=== PATIENT | male | born 1960 | race Caucasian/White ===

== ENCOUNTER 2018-02-03 03:17 | Inpatient (IN) ==
[2018-02-03] MEDS ORDERED: *HR* OxyCODONE/APAP 10/325 TABLET PO PRN (06:56)
[2018-02-03] MEDS ORDERED: 0.9 % Sodium Chloride 1,000 ML IVC SCH ×2 (07:00→09:30)
[2018-02-03] MEDS: cefOXitin 2,000 MG in Water for inj. (sterile) 20 ML 20 ML IVP SCH ×3 (07:56→23:11)
[2018-02-03 08:18] LABS: Basophils # 0.1 K/mcL (0.0-0.2); Basophils % 0.5 %; Eosinophils # 0.4 K/mcL (0.0-0.6); Hematocrit 32.1 % (37.5-50.1); Hemoglobin 10.4 g/dL (12.9-16.9); Immature Granulocytes % 0.4 % (0-4); Immature Platelets 1.7 % (1.1-6.1); Lymphocytes # 2.3 K/mcL (0.6-4.6); Lymphocytes % 25.1 %; Mean Corpuscular HGB Conc 32.4 g/dL (31.6-35.5); Mean Corpuscular Hemoglobin 29.6 pg (28.0-33.3); Mean Corpuscular Volume 91.5 fL (83.0-100.0); Mean Platelet Volume 9.4 fL (9.4-12.4); Monocytes # 0.6 K/mcL (0.0-1.3); Monocytes % 6.5 %; Neutrophils # 5.8 K/mcL (1.6-8.9); Platelet Count 388 K/mcL (140-400); Red Blood Count 3.51 M/mcL (4.19-5.50); Red Cell Distribution Width 13.1 % (11.5-14.5); Segmented Neutrophils % 63.5 %
[2018-02-03 08:26] LABS: INR 1.4; Prothrombin Time 15.2 Seconds (9.4-12.1)
[2018-02-03 08:39] LABS: BUN/Creatinine Ratio 19 (6-26); Blood Urea Nitrogen 14 mg/dL (6-20); Calcium 9.1 mg/dL (8.6-10.3); Carbon Dioxide 25 mEq/L (23-29); Chloride 104 mEq/L (98-107); Glucose 120 mg/dL (70-105); Osmolality,Calculated 292 (280-300); Potassium 3.8 mEq/L (3.5-5.1); Sodium 140 mEq/L (136-145); eGFR For Non-African Americans > 60 (> 60)
[2018-02-03] MEDS ORDERED: Ondansetron 4 MG/2 ML VIAL IVP PRN ×2 (08:52→18:34)
[2018-02-03] MEDS ORDERED: *HR* Promethazine 25 MG/ML VIAL IVP PRN ×3 (09:20→18:34)
[2018-02-03] MEDS ORDERED: OXYCODONE Oral CONC 10 MG/0.5 ML ORAL.SYG SL PRN ×3 (09:20→18:34)
--- NOTE | 2018-02-03 10:28 | General Surg History&Physical ---
<Karishma Pryor Sawyer - Last Filed: 02/03/18 10:13> Date of Encounter: 02/03/18 Time of Encounter: 07:45 Assessment and Plan (1) Cholelithiasis and acute cholecystitis without obstruction Current Visit: Yes Status: Acute The assessment and plan as outlined above was discussed with the patient and/or family members who expressed understanding and agreement. All questions were answered. EKG from [facility] on 02/03/2018 at 0350 noted sinus rhythm with poor R wave progression. Other diagnostic studies at [facility] noted a WBC of 8.4, hemoglobin 10.6, elevated glucose at 134, alkaline phosphatase elevated at 125, CT of the abdomen and pelvis with IV contrast noted over distention of the gallbladder,. Per report review from [facility], Cholecystic inflammatory change consistent with acute cholecystitis, 2 centimeter calcified gallstone in the gallbladder neck, there is no evidence of abscess or perforation, no biliary ductal dilation. there is a 1.5 cm left adrenal nodules and a 4.5 cm right renal cyst. Moderate hiatal hernia. The disc has been sent to radiology to load into PACs for image review. The patient is recommended to undergo a laparoscopic cholecystectomy with possible intraoperative choliangiogram. The recommendations, risks, and benefits were reviewed by Dr. Peraza. The patient is agreeable to proceed. A signed consent is placed on the hard chart. He reports shortness of breath at baseline that has not worsened, stating, "I have emphysema." He denies chest pain. As noted above he did have an EKG K[place] which noted poor are wave progression. We will repeat this EKG for the preoperative setting. He has had limited activity recently due to his back surgery on 01/15/2018 but states that he is able to climb 2 flights of stairs and complete activities on a regular basis that are equal to 4 METs of activity. Plan: NPO IV antibiotics discomfort management and supportive care G.I. and DVT prophylaxis surgical intervention in the next 24 to 48 hours start scheduled duonebs now given his smoking, emphysema history, and current wheezing. Start aggressive pulmonary toileting now continued smoking cessation is strongly encouraged (2) COPD (chronic obstructive pulmonary disease) with emphysema Current Visit: Yes Status: Acute Will complete a CXR (PA and LAT) for baseline given his wheezing currently and fever to rule out CAP. start scheduled duonebs now given his smoking, emphysema history, and current wheezing. Otherwise see a/p above Qualifiers: Emphysema type: unspecified Qualified Code(s): J43.9 - Emphysema, unspecified (3) HTN, goal below 130/80 Current Visit: Yes Status: Acute IV prn hydralazine (4) Smoking history Current Visit: Yes Status: Acute See above (5) Chronic pain Current Visit: Yes Status: Acute PRN pain control at this time. Patient reports taking gabapentin at baseline but has not resumed his sentences previous back surgery. Qualifiers: Chronic pain type: other chronic pain Qualified Code(s): G89.29 - Other chronic pain History of Present Illness Chief complaint: RUQ pain and nausea HPI: Mr. Umaña is a 57 year old male who presented in transfer from [facility] on 02/03/2018 for complaints of a 2 week worsening history of right upper quadrant pain. He reports approximately 2 weeks ago he began having right upper quadrant pain that was colicky, 6 out of 10, associated with eating, but we typically go away. Last night he had a sudden onset of much worsening abdominal pain, a 10 out of 10, sharp, wrapping around to the back and right shoulder, no alleviating factors, associated with nausea, no vomiting, and associated with feelings of chills and sweats. He reports the same symptoms have continued until he was recently given some pain medication. He endorses a history of constipation since his back surgery on January 15 for which he was taking laxatives and this would relieve his symptoms. He reports his last bowel movement with yesterday. He denies fever, headache, dizziness, chest pain, shortness of breath (outside his norm) urinary signs or symptoms, or generalized weakness. He denies black, bloody, or tarry stool. He reports a 2 pack per day smoking history for at least 40 years. He reports he quit prior to having his recent back surgery. He states he has known emphysema and uses an inhaler. He reports a past medical history of hypo thyroid, hypertension, Gerd, hyperlipidemia, and back problems. He was recently started on gabapentin and aspirin after his back surgery but has not began taking those as yet. Past Med Surg Social Fam HX - Past Medical History Source: patient, old records reviewed Medical history: COPD (Emphysema), GERD, hyperlipidemia, hypertension, thyroid disease Psychiatric history: no psych history - Past Surgical History Additional surgical history: Spinal fusion March 04, 2017, recent quote rods, pins, and disc replacement in the low spine) 01/15/[address] Santacruz in [place] - Social History Smoking Status: Former smoker Smokeless Tobacco Status: No Alcohol use: none Drug use: none - Family History Father Living Status: Hx Family Musculoskeletal Disorders: Yes (back issues) Medications and Allergies Albuterol Sulfate [Proair Hfa] 2 puff IH Q4-6H PRN 02/03/18 [History] Aspirin [Adult Aspirin] 81 mg PO DAILY 02/03/18 [History] Benazepril/Hydrochlorothiazide [Ziac 5-6.25 mg Tab] 1 tab PO DAILY 02/03/18 [History] Gabapentin [Neurontin] 600 mg PO TID 02/03/18 [History] Levothyroxine Sodium [Synthroid] 137 mcg PO DAILY 02/03/18 [History] Omeprazole [PriLOSEC] 20 mg PO DAILY 02/03/18 [History] Oxycodone HCl/Acetaminophen [Percocet 5-325 mg Tablet] 1 tab PO TID PRN 02/03/18 [History] Pravastatin Sodium [Pravachol] 40 mg PO QPM 02/03/18 [History] Allergy/AdvReac Type Severity Reaction Status Date / Time No Known Allergies Allergy Verified 06/26/16 15:13 Review of Systems All systems PM: reviewed and no additional remarkable complaints except as stated All systems PM: The remainder of the systems were reviewed and are negative General Surgery Exam Initial Vital Signs Temp Pulse Resp BP 99.0 F 84 14 128/73 02/03/18 06:50 02/03/18 06:50 02/03/18 06:50 02/03/18 06:50 VITAL SIGNS: Reviewed. See [facility] GENERAL: In no apparent distress. HEENT: Normocephalic, atraumatic, pupils are equal and reactive, extraocular motions intact, oropharynx is pink and moist, there is no neck adenopathy or JVD noted. CHEST/RESPIRATORY: The thorax is free from signs of trauma. Lung sounds: tight, inspiratory wheezing CARDIAC: Regular rate and rhythm. Normal S1 and S2, without murmurs, gallops, or rubs. VASCULAR: No Edema. 2+ peripheral pulses. ABDOMEN: soft, positive Alonso sign, active bowel sounds MUSCULOSKELETAL: Good range of motion of all major joints. Extremities without clubbing, cyanosis or edema. NEUROLOGIC EXAM: Alert and oriented x 3. Speech normal. Follows commands. PSYCHIATRIC: Mood normal. SKIN: No rash or lesions. Results - Labs 02/03/18 07:54 02/03/18 07:54 Abnormal lab results RBC 3.51 M/mcL (4.19-5.50) L 02/03/18 07:54 Hgb 10.4 g/dL (12.9-16.9) L 02/03/18 07:54 Hct 32.1 % (37.5-50.1) L 02/03/18 07:54 PT 15.2 Seconds (9.4-12.1) H 02/03/18 07:54 Glucose 120 mg/dL (70-105) H 02/03/18 07:54 Diabetes panel 02/03/18 Range/Units 07:54 Sodium 140 (136-145) mEq/L Potassium 3.8 (3.5-5.1) mEq/L Chloride 104 (98-107) mEq/L Carbon Dioxide 25 (23-29) mEq/L BUN 14 (6-20) mg/dL Creatinine 0.73 (0.70-1.30) mg/dL Glucose 120 H (70-105) mg/dL Calcium 9.1 (8.6-10.3) mg/dL Calcium panel 02/03/18 Range/Units 07:54 Calcium 9.1 (8.6-10.3) mg/dL Pituitary panel 02/03/18 Range/Units 07:54 Sodium 140 (136-145) mEq/L Potassium 3.8 (3.5-5.1) mEq/L Chloride 104 (98-107) mEq/L Carbon Dioxide 25 (23-29) mEq/L BUN 14 (6-20) mg/dL Creatinine 0.73 (0.70-1.30) mg/dL Glucose 120 H (70-105) mg/dL Calcium 9.1 (8.6-10.3) mg/dL Adrenal panel 02/03/18 Range/Units 07:54 Sodium 140 (136-145) mEq/L Potassium 3.8 (3.5-5.1) mEq/L Chloride 104 (98-107) mEq/L Carbon Dioxide 25 (23-29) mEq/L BUN 14 (6-20) mg/dL Creatinine 0.73 (0.70-1.30) mg/dL Glucose 120 H (70-105) mg/dL Calcium 9.1 (8.6-10.3) mg/dL All other labs normal. - Imaging CT scan - abdomen: report reviewed, image reviewed CT scan - pelvis: report reviewed, image reviewed <Ming Peraza - Last Filed: 02/03/18 12:57> Date of Encounter: 02/03/18 Assessment and Plan (1) Cholelithiasis and acute cholecystitis without obstruction Current Visit: Yes Status: Acute The assessment and plan as outlined above was discussed with the patient and/or family members who expressed understanding and agreement. All questions were answered. (2) COPD (chronic obstructive pulmonary disease) with emphysema Current Visit: Yes Status: Acute The assessment and plan as outlined above was discussed with the patient and/or family members who expressed understanding and agreement. All questions were answered. Qualifiers: Emphysema type: unspecified Qualified Code(s): J43.9 - Emphysema, unspecified (3) HTN, goal below 130/80 Current Visit: Yes Status: Acute The assessment and plan as outlined above was discussed with the patient and/or family members who expressed understanding and agreement. All questions were answered. (4) Smoking history Current Visit: Yes Status: Acute The assessment and plan as outlined above was discussed with the patient and/or family members who expressed understanding and agreement. All questions were answered. (5) Chronic pain Current Visit: Yes Status: Acute The assessment and plan as outlined above was discussed with the patient and/or family members who expressed understanding and agreement. All questions were answered. Qualifiers: Chronic pain type: other chronic pain Qualified Code(s): G89.29 - Other chronic pain History of Present Illness HPI: Mr. Umaña is a 57 year old male Review of Systems All systems PM: The remainder of the systems were reviewed and are negative General Surgery Exam Initial Vital Signs Temp Pulse Resp BP 99.0 F 84 14 128/73 02/03/18 06:50 02/03/18 06:50 02/03/18 06:50 02/03/18 06:50 Results - Labs 02/03/18 07:54 02/03/18 07:54 Abnormal lab results RBC 3.51 M/mcL (4.19-5.50) L 02/03/18 07:54 Hgb 10.4 g/dL (12.9-16.9) L 02/03/18 07:54 Hct 32.1 % (37.5-50.1) L 02/03/18 07:54 PT 15.2 Seconds (9.4-12.1) H 02/03/18 07:54 Glucose 120 mg/dL (70-105) H 02/03/18 07:54 Diabetes panel 02/03/18 Range/Units 07:54 Sodium 140 (136-145) mEq/L Potassium 3.8 (3.5-5.1) mEq/L Chloride 104 (98-107) mEq/L Carbon Dioxide 25 (23-29) mEq/L BUN 14 (6-20) mg/dL Creatinine 0.73 (0.70-1.30) mg/dL Glucose 120 H (70-105) mg/dL Calcium 9.1 (8.6-10.3) mg/dL Calcium panel 02/03/18 Range/Units 07:54 Calcium 9.1 (8.6-10.3) mg/dL Pituitary panel 02/03/18 Range/Units 07:54 Sodium 140 (136-145) mEq/L Potassium 3.8 (3.5-5.1) mEq/L Chloride 104 (98-107) mEq/L Carbon Dioxide 25 (23-29) mEq/L BUN 14 (6-20) mg/dL Creatinine 0.73 (0.70-1.30) mg/dL Glucose 120 H (70-105) mg/dL Calcium 9.1 (8.6-10.3) mg/dL Adrenal panel 02/03/18 Range/Units 07:54 Sodium 140 (136-145) mEq/L Potassium 3.8 (3.5-5.1) mEq/L Chloride 104 (98-107) mEq/L Carbon Dioxide 25 (23-29) mEq/L BUN 14 (6-20) mg/dL Creatinine 0.73 (0.70-1.30) mg/dL Glucose 120 H (70-105) mg/dL Calcium 9.1 (8.6-10.3) mg/dL All other labs normal. - Attending Attestation I have personally performed a face to face evaluation on this patient. I have reviewed and agree with the care plan. History and Exam by me shows: The patient is seen and evaluated on morning rounds. He has cholelithiasis and acute cholecystitis. We will plan laparoscopic cholecystectomy later today. We discussed the risks and benefits of surgery as well as possibility of open conversion. Ming Peraza MD FACS
[2018-02-03] MEDS: Ipratropium/Albuterol Neb 3 ML IH SCH ×5 (11:24→19:33)
[2018-02-03] MEDS: Acetaminophen IV 1,000 MG/100 ML INFUS..BTL IVPB SCH ×3 (11:53→17:18)
[2018-02-03] MEDS ORDERED: Ondansetron 4 MG/2 ML VIAL IVP SCH (12:00)
[2018-02-03] MEDS ORDERED: CefOXitin 1,000 MG VIAL ONE (15:42)
[2018-02-03] MEDS ORDERED: Isovue-300 50 ML VIAL IVP ONE (15:44)
[2018-02-03] MEDS ORDERED: *HR* Rocuronium Bromide 50 MG/5 ML VIAL ONE (15:54)
[2018-02-03] MEDS ORDERED: Lidocaine -MPF 2% 2 ML VIAL ONE (15:54)
[2018-02-03] MEDS ORDERED: Lidocaine -MPF 4% 5 ML AMPUL ONE (15:54)
[2018-02-03] MEDS ORDERED: *HR* Succinylcholine 200 MG/10 ML VIAL IVP ONE (15:54)
[2018-02-03] MEDS ORDERED: *HR* FentaNYL (PF) 100 MCG/2 ML VIAL ONE ×2 (15:56→16:50)
[2018-02-03] MEDS ORDERED: Dexamethasone 4 MG/ML VIAL ONE (15:56)
[2018-02-03] MEDS ORDERED: *HR* Midazolam HCl 2 MG/2 ML VIAL ONE (15:56)
[2018-02-03] MEDS ORDERED: *HR* Propofol 200 MG/20 ML VIAL IVP ONE (15:56)
[2018-02-03] MEDS ORDERED: Ondansetron 4 MG/2 ML VIAL ONE (15:56)
--- NOTE | 2018-02-03 15:58 | Anesthesia Evaluation PreOp ---
Date of Encounter: 02/03/18 Time of Encounter: 15:56 - Past History Planned Operation: Lap cholecystectomy, cholangiogram Cardiac History: HTN, Hyperlipidemia Pulmonary History: Smoker, COPD INSURANCE CONSULTANT History: Other (back pain) Other Medical History: GERD Anesthesia History: No Prior Anesthetic Complications Alcohol Use: none Drug use: none Medications and Allergies Albuterol Sulfate [Proair Hfa] 2 puff IH Q4-6H PRN 02/03/18 [History] Aspirin [Adult Aspirin] 81 mg PO DAILY 02/03/18 [History] Benazepril/Hydrochlorothiazide [Ziac 5-6.25 mg Tab] 1 tab PO DAILY 02/03/18 [History] Gabapentin [Neurontin] 600 mg PO TID 02/03/18 [History] Levothyroxine Sodium [Synthroid] 137 mcg PO DAILY 02/03/18 [History] Omeprazole [PriLOSEC] 20 mg PO DAILY 02/03/18 [History] Oxycodone HCl/Acetaminophen [Percocet 5-325 mg Tablet] 1 tab PO TID PRN 02/03/18 [History] Pravastatin Sodium [Pravachol] 40 mg PO QPM 02/03/18 [History] Allergy/AdvReac Type Severity Reaction Status Date / Time No Known Allergies Allergy Verified 06/26/16 15:13 - Meds/Allergy Pre-op Review Medications Reviewed: Yes Allergies Reviewed: Yes Beta Blockers on Current Med List: No Anesthesia Results - Labs 02/03/18 07:54 02/03/18 07:54 - Imaging EKG: report reviewed, image reviewed (SR) Anesthesia Exam Last Vital Signs Temp 97.4 F L 02/03/18 15:24 Pulse 82 02/03/18 15:24 Resp 16 02/03/18 15:24 BP 166/79 02/03/18 15:24 Pulse Ox 94 02/03/18 15:24 Weight: 110 kg NPO (# of Hours): > 8 hrs - HEENT Pupil (Motor): Pupils equal, EOMI Mallampati: III Teeth: Poor dentition Oral Opening: Greater than 3 - INSURANCE CONSULTANT LOC: Oriented - Cardiac Rhythm: Regular Murmur: None - Pulmonary Breath Sounds: bilateral Clear Respiratory Effort: Symmetrical Anesthesia Assess/Plan ASA Score: 2 Level of consciousness: Cooperative Anesthetic Plan: General Monitoring Plan: Standard Monitors Recovery Plan: PACU
[2018-02-03] MEDS ORDERED: Neostigmine Methylsulfate 3 MG/3 ML SYRINGE ONE (15:59)
[2018-02-03] MEDS ORDERED: *HR* Morphine 10 MG/ML VIAL ONE (17:40)
--- NOTE | 2018-02-03 18:03 | Operative Note ---
Date of procedure: 02/03/18 Pre-op diagnosis: Acute cholecystitis and cholelithiasis Post-op diagnosis: other (Acute cholecystitis and cholelithiasis with gallbladder necrosis and gangrene) Procedure: Attempted laparoscopic cholecystectomy for 30 minutes. Open cholecystectomy (+30% for severe inflammation) ( Anesthesia: GETA Surgeon: Ming Peraza Was there an transportation assistant present: Yes Skidder: Lucy Styles Estimated blood loss (cc): 150 Specimen: Gallbladder and contents Condition: stable Disposition: PACU Procedure in Detail: After informed consent the patients taking major operative suite placed in the supine position given adequate general endotracheal anesthesia. The abdomen is prepped and draped in sterile fashion utilizing ChloraPrep and standard draping techniques. Timeout was taken and the patient was identified. Made a vertical midline incision below the umbilicus and dissected down the level of fascia. I placed 2 traction stitches and entered the abdominal cavity visually. I placed a Salazar trocar. I insufflated to 15 mmHg pressure CO2. I introduced the laparoscope and identified the gallbladder as completely obstructed and completely encased in a combination of acute and chronic inflammatory adhesions. I placed a 11 trocar in the subxiphoid area and 25 mm trochars. I decompressed the gallbladder with needle suction. When I attempted to grasp and elevate the gallbladder the gallbladder wall disintegrated secondary to large patches of necrosis and gangrene. This is an indication of severe infection with purulence. I worked for 30 minutes trying to mobilize CT gallbladder at the end of 30 minutes I cannot identify the natali hepatis or the neck of the gallbladder. The adhesions around the neck the gallbladder artery. Laparoscopic dissection was possible and laparoscopic approach was abandoned. I converted to open. I made a oblique subcostal incision and entered the abdominal cavity. The gallbladder was identified. I placed a Bookwalter retractor. I work for another 45 minutes to try to dissected neck the gallbladder and the inflammatory changes around the neck were 2 intense to make an accurate dissection. I decided retrograde the dissection I started at the top the gallbladder and imm ediately encountered arch areas of liquefactive necrosis and pus. This made the dissection off the liver quite difficult. I was finally able to get the gallbladder off the liver I placed a Bookwalter retractor to hold pressure on the gallbladder bed to control the hemorrhage. This worked very effectively. Neck the gallbladder was then identified. The reason that the dissection was difficult is that there was a large stone lodged along the lateral aspect of the common bile duct below the cystic duct and above the duodenum. This caused complete obstruction of the gallbladder. Once this was mobilized I was able to dissected the cystic duct accurately. The cystic duct was identified and controlled with 2 surgical clips proximally and one distally and it was divided. The gallbladder was removed. Placed a #10 Adilson-Pérez drain there was no evidence of bile leak. I inspected the gallbladder fossa twice and used electrocautery and Surgicel for hemostasis. Total blood loss 150 mL. Dissection time was well over an hour resulting in much higher level of complexity for the case. I irrigated with copious amounts of antibiotic containing solution. Posterior fascia was closed with looped 0 PDS anterior fascia was closed with looped 0 PDS skin was closed with interrupted skin clips and interrupted Vicryl. He tolerated the procedure well.
[2018-02-03] MEDS ORDERED: Ondansetron 4 MG/2 ML VIAL IVP ONE (18:12)
[2018-02-03] MEDS ORDERED: *HR* Labetalol 20 MG/4 ML SYRINGE IVP PRN (18:12)
[2018-02-03] MEDS ORDERED: *HR* OxyCODONE Immed Rel 5 MG TABLET PO PRN (18:12)
[2018-02-03] MEDS: *HR* HYDROmorphone (PF) 1 MG/ML SYRINGE IVP PRN ×2 (18:15→18:20)
[2018-02-03] MEDS: 0.9 % Sodium Chloride 1,000 ML IVC SCH (23:10)
[2018-02-04] MEDS: OXYCODONE Oral CONC 10 MG/0.5 ML ORAL.SYG SL PRN ×4 (02:21→20:49)
[2018-02-04] MEDS: Ipratropium/Albuterol Neb 3 ML IH SCH ×6 (03:52→23:09)
[2018-02-04 07:58] LABS: Basophils % 0.1 %; Eosinophils % 0.1 %; Hemoglobin 10.1 g/dL (12.9-16.9); Immature Granulocytes % 0.3 % (0-4); Lymphocytes # 1.1 K/mcL (0.6-4.6); Lymphocytes % 11.1 %; Mean Corpuscular HGB Conc 32.6 g/dL (31.6-35.5); Mean Corpuscular Hemoglobin 29.5 pg (28.0-33.3); Mean Corpuscular Volume 90.6 fL (83.0-100.0); Mean Platelet Volume 9.7 fL (9.4-12.4); Monocytes # 0.7 K/mcL (0.0-1.3); Monocytes % 6.9 %; Neutrophils # 8.1 K/mcL (1.6-8.9); Platelet Count 478 K/mcL (140-400); Red Blood Count 3.42 M/mcL (4.19-5.50); Red Cell Distribution Width 13.3 % (11.5-14.5); Segmented Neutrophils % 81.5 %
[2018-02-04 08:14] LABS: BUN/Creatinine Ratio 19 (6-26); Blood Urea Nitrogen 16 mg/dL (6-20); Carbon Dioxide 26 mEq/L (23-29); Chloride 105 mEq/L (98-107); Glucose 161 mg/dL (70-105); Osmolality,Calculated 297 (280-300); Potassium 3.9 mEq/L (3.5-5.1); Sodium 141 mEq/L (136-145); eGFR For Non-African Americans > 60 (> 60)
[2018-02-04] MEDS: cefOXitin 2,000 MG in Water for inj. (sterile) 20 ML 20 ML IVP SCH ×2 (08:17→16:58)
[2018-02-04] MEDS: Pantoprazole 40 MG VIAL IVP SCH (08:18)
--- NOTE | 2018-02-04 08:51 | General Surgery Progress Note ---
<Rafia Medina - Last Filed: 02/04/18 10:56> Date of Encounter: 02/04/18 Time of Encounter: 06:41 - Assessment and Plan (1) Acute gangrenous cholecystitis Current Visit: Yes Status: Acute POD #1 s/p attempted laparoscopic cholecystectomy converted to open cholecystectomy with acute cholecystitis and cholelithiasis with gallbladder necrosis and gangrene Patient feeling significantly better today with minimal abdominal pain and denies any fever, nausea, vomiting, or diarrhea. Has passed gas, but no BM yet WBC 9.9 BMP wnl Plan: Advanced to clear liquid diet Continue IV Cefoxitin (day 2) Continue discomfort management and supportive care Continue GI/DVT prophylaxis Continue antiemetics PRN Plan for possible discharge tomorrow (2) COPD (chronic obstructive pulmonary disease) with emphysema Current Visit: Yes Status: Acute CXR showed linear opacities in lung bases, likely atelectasis Continue duonebs Continue to encourage smoking cessation Qualifiers: Emphysema type: unspecified Qualified Code(s): J43.9 - Emphysema, unspecified Subjective Patient reports: feels better, pain is less, flatus, no bowel movement, afebrile Objective Vital Signs - Last 8 Hours Temp Pulse Resp BP Pulse Ox 02/04/18 07:32 98.2 F 105 16 141/87 94 02/04/18 03:54 14 98 02/04/18 03:10 98.5 F 83 15 142/83 95 Intake and Output 02/03/18 02/04/18 02/04/18 23:59 07:59 15:59 Intake Total 0 / 0 Output Total 225 / 225 95 / 95 Balance -215 / -215 -95 / -95 Intake: IV Fluids Mefoxin 2,000 MG In Water for inj. (sterile) 20 ML @ 300 mls/ hr IVP Q8HR [facility] Rx#:[id number] Oral 0 / 0 Output: Urine 0 / 0 Estimated Blood Loss 150 / 150 Wound Drainage 75 / 75 95 / 95 Right Lower Abdomen 75 / 75 95 / 95 Other: Meal NPO Weight 108.6 kg Blood Glucose* 157 159 Patient Weight 02/04/18 23:59 Weight 108.6 kg - General physical appearance well developed, no distress, moderate pain - Eyes normal ocular movement - ENT normal mucosa, atraumatic, normocephalic - Neck Neck exam: no masses, trachea midline - Respiratory normal expansion, normal respiratory effort, clear to auscultation - Cardiovascular Cardiovascular exam: Present: RRR, no murmurs/rubs/gallops - Abdomen Abdomen: Present: bowel sounds present, soft, non tender. Absent: guarding, rebound - Incision Incision: Present: clean and dry, intact. Absent: draining, erythema - Integumentary no rash - Neurologic CN 2-12 grossly intact - Psychiatric oriented to time, oriented to person, oriented to place, speech is normal, memory intact - Labs 02/04/18 06:18 02/04/18 06:18 Diabetes panel 02/04/18 Range/Units 06:18 Sodium 141 (136-145) mEq/L Potassium 3.9 (3.5-5.1) mEq/L Chloride 105 (98-107) mEq/L Carbon Dioxide 26 (23-29) mEq/L BUN 16 (6-20) mg/dL Creatinine 0.84 (0.70-1.30) mg/dL Glucose 161 H (70-105) mg/dL Calcium 9.0 (8.6-10.3) mg/dL Calcium panel 02/04/18 Range/Units 06:18 Calcium 9.0 (8.6-10.3) mg/dL Pituitary panel 02/04/18 Range/Units 06:18 Sodium 141 (136-145) mEq/L Potassium 3.9 (3.5-5.1) mEq/L Chloride 105 (98-107) mEq/L Carbon Dioxide 26 (23-29) mEq/L BUN 16 (6-20) mg/dL Creatinine 0.84 (0.70-1.30) mg/dL Glucose 161 H (70-105) mg/dL Calcium 9.0 (8.6-10.3) mg/dL Adrenal panel 02/04/18 Range/Units 06:18 Sodium 141 (136-145) mEq/L Potassium 3.9 (3.5-5.1) mEq/L Chloride 105 (98-107) mEq/L Carbon Dioxide 26 (23-29) mEq/L BUN 16 (6-20) mg/dL Creatinine 0.84 (0.70-1.30) mg/dL Glucose 161 H (70-105) mg/dL Calcium 9.0 (8.6-10.3) mg/dL Consult Discharge Plan - Plan Referrals: Ming Peraza MD [Partnered Physician] - 02/24/18 10:10 am Kavya Connell CNP [Primary Care Provider] - <Ming Peraza - Last Filed: 02/04/18 15:29> Date of Encounter: 02/04/18 - Assessment and Plan (1) Cholelithiasis and acute cholecystitis without obstruction Current Visit: Yes Status: Acute (2) COPD (chronic obstructive pulmonary disease) with emphysema Current Visit: Yes Status: Acute Qualifiers: Emphysema type: unspecified Qualified Code(s): J43.9 - Emphysema, unspecified (3) HTN, goal below 130/80 Current Visit: Yes Status: Acute (4) Smoking history Current Visit: Yes Status: Acute (5) Chronic pain Current Visit: Yes Status: Acute Qualifiers: Chronic pain type: other chronic pain Qualified Code(s): G89.29 - Other chronic pain Objective Vital Signs - Last 8 Hours Temp Pulse Resp BP Pulse Ox 02/04/18 12:07 97.7 F 110 16 154/84 95 02/04/18 11:11 16 95 02/04/18 07:49 16 96 02/04/18 07:32 98.2 F 105 16 141/87 94 Intake and Output 02/03/18 02/04/18 02/04/18 23:59 07:59 15:59 Intake Total 0 / 0 1380 / 1380 Output Total 225 / 225 95 / 95 270 / 270 Balance -215 / -215 -95 / -95 1110 / 1110 Intake: IV Fluids 1020 / 1020 0.9 % Sodium Chloride 1,000 ML 1000 / 1000 @ 100 mls/hr IVC .Q10H [facility] Rx#: [id number] Mefoxin 2,000 MG In Water for 20 inj. (sterile) 20 ML @ 300 mls/ hr IVP Q8HR [facility] Rx#:[id number] Oral 0 / 0 360 / 360 Output: Urine 0 / 0 250 / 250 Estimated Blood Loss 150 / 150 Wound Drainage 75 / 75 95 / 95 20 / 20 Right Lower Abdomen 75 / 75 95 / 95 20 / 20 Other: Meal NPO Lunch Percent of Meal Consumed 100% Weight 108.6 kg Blood Glucose* 157 159 Patient Weight 02/04/18 23:59 Weight 108.6 kg - Labs 02/04/18 06:18 02/04/18 06:18 Diabetes panel 02/04/18 Range/Units 06:18 Sodium 141 (136-145) mEq/L Potassium 3.9 (3.5-5.1) mEq/L Chloride 105 (98-107) mEq/L Carbon Dioxide 26 (23-29) mEq/L BUN 16 (6-20) mg/dL Creatinine 0.84 (0.70-1.30) mg/dL Glucose 161 H (70-105) mg/dL Calcium 9.0 (8.6-10.3) mg/dL Calcium panel 02/04/18 Range/Units 06:18 Calcium 9.0 (8.6-10.3) mg/dL Pituitary panel 02/04/18 Range/Units 06:18 Sodium 141 (136-145) mEq/L Potassium 3.9 (3.5-5.1) mEq/L Chloride 105 (98-107) mEq/L Carbon Dioxide 26 (23-29) mEq/L BUN 16 (6-20) mg/dL Creatinine 0.84 (0.70-1.30) mg/dL Glucose 161 H (70-105) mg/dL Calcium 9.0 (8.6-10.3) mg/dL Adrenal panel 02/04/18 Range/Units 06:18 Sodium 141 (136-145) mEq/L Potassium 3.9 (3.5-5.1) mEq/L Chloride 105 (98-107) mEq/L Carbon Dioxide 26 (23-29) mEq/L BUN 16 (6-20) mg/dL Creatinine 0.84 (0.70-1.30) mg/dL Glucose 161 H (70-105) mg/dL Calcium 9.0 (8.6-10.3) mg/dL - Attending Attestation I examined this patient and my medical decision-making was reviewed with the Resident Physician. I agree with the documented findings, disposition and treatment plan as described except to the extent set forth below. The patient is seen and evaluated on morning rounds with resident. His pain control is excellent. We will continue IV antibiotics today. Started on diet. Inpatient status. Ming Peraza MD FACS
[2018-02-04] MEDS ORDERED: Pantoprazole 40 MG VIAL IVP SCH (09:00)
[2018-02-04] MEDS: 0.9 % Sodium Chloride 1,000 ML IVC SCH ×2 (10:31→20:52)
[2018-02-04] MEDS: *HR* Heparin 5,000 UNIT/ML VIAL SQ SCH (16:59)
[2018-02-05] MEDS: Ipratropium/Albuterol Neb 3 ML IH SCH ×5 (00:13→15:37)
[2018-02-05] MEDS: cefOXitin 2,000 MG in Water for inj. (sterile) 20 ML 20 ML IVP SCH ×2 (00:48→07:29)
[2018-02-05 05:11] LABS: Basophils % 0.3 %; Eosinophils # 0.2 K/mcL (0.0-0.6); Hematocrit 26.5 % (37.5-50.1); Hemoglobin 8.6 g/dL (12.9-16.9); Immature Granulocytes % 0.3 % (0-4); Lymphocytes # 1.7 K/mcL (0.6-4.6); Lymphocytes % 18.7 %; Mean Corpuscular HGB Conc 32.5 g/dL (31.6-35.5); Mean Corpuscular Hemoglobin 29.5 pg (28.0-33.3); Mean Corpuscular Volume 90.8 fL (83.0-100.0); Mean Platelet Volume 9.7 fL (9.4-12.4); Monocytes # 0.7 K/mcL (0.0-1.3); Monocytes % 7.8 %; Neutrophils # 6.6 K/mcL (1.6-8.9); Platelet Count 413 K/mcL (140-400); Red Blood Count 2.92 M/mcL (4.19-5.50); Red Cell Distribution Width 13.6 % (11.5-14.5); Segmented Neutrophils % 70.9 %
[2018-02-05 05:33] LABS: BUN/Creatinine Ratio 18 (6-26); Blood Urea Nitrogen 13 mg/dL (6-20); Calcium 8.5 mg/dL (8.6-10.3); Carbon Dioxide 25 mEq/L (23-29); Chloride 103 mEq/L (98-107); Glucose 152 mg/dL (70-105); Osmolality,Calculated 289 (280-300); Potassium 3.3 mEq/L (3.5-5.1); Sodium 138 mEq/L (136-145); eGFR For Non-African Americans > 60 (> 60)
[2018-02-05] MEDS: *HR* Heparin 5,000 UNIT/ML VIAL SQ SCH (06:42)
[2018-02-05] MEDS: 0.9 % Sodium Chloride 1,000 ML IVC SCH (06:42)
[2018-02-05] MEDS: Pantoprazole 40 MG VIAL IVP SCH (07:29)
--- NOTE | 2018-02-05 08:57 | Discharge Summary ---
<AdamRafia Coffey - Last Filed: 02/05/18 13:57> - NOTES TO OUTPATIENT PROVIDER Notes to Outpatient Provider: Patient s/p open cholecystectomy and will follow up with Dr. Peraza in 2 weeks. Follow up with PCP within 1 week. Orders not resulted at time of discharge: Pending orders 02/03/18 17:38 Surgical Pathology [PTH] Routine Date of Encounter: 02/05/18 Time of Encounter: 07:15 - Discharge Diagnosis (1) Acute gangrenous cholecystitis Priority: Primary Status: Acute (2) COPD (chronic obstructive pulmonary disease) with emphysema Priority: Secondary Status: Chronic Qualifiers: Emphysema type: unspecified Qualified Code(s): J43.9 - Emphysema, unspecified General Surgery Exam Initial Vital Signs Temp Pulse Resp BP 99.0 F 84 14 128/73 02/03/18 06:50 02/03/18 06:50 02/03/18 06:50 02/03/18 06:50 - General physical appearance well developed, well nourished, no distress - Eyes normal ocular movement - ENT normal mucosa - Neck no masses, trachea midline - Respiratory normal expansion, normal respiratory effort, clear to auscultation - Cardiovascular Cardiovascular exam: Present: RRR, no murmurs/rubs/gallops - Abdomen Abdomen general surgery: Present: bowel sounds present, soft, non tender - Incision Incision: Present: clean and dry, intact, erythema (slight, near the upper midportion of the incision). Absent: draining - Integumentary Integumentary general surgery: Present: warm and dry. Absent: rash - Neurologic Present: CN 2-12 grossly intact - Psychiatric Psychiatric general surgery: Present: A&Ox3, speech is normal, memory intact - Hospital Course Hospital course: Mr. Umaña is a 57 year old male with a history of COPD who presented from [facility] on 02/03 to [facility] with a 2 week history of worsening right upper quadrant pain. EKG from [facility] on 02/03/2018 at 0350 noted sinus rhythm with poor R wave progression. Other diagnostic studies at [facility] noted a WBC of 8.4, hemoglobin 10.6, elevated glucose at 134, alkaline phosphatase elevated at 125, CT of the abdomen and pelvis with IV contrast noted over distention of the gallbladder. Laparoscopic cholecystectomy was attempted and then converted to open cholecystectomy due to severe inflammation. Post-op diagnosis of acute cholecystitis and cholelithiasis with gallbladder necrosis and gangrene. Patient tolerated the procedure well and feels sig nificantly better since surgery. He has passed gas but has not yet had a bowel movement. Patient tolerating regular diet and denies any abdominal pain, nausea vomiting or diarrhea. Incision is clean, dry, and intact. SAMSON drain has been removed without complication. Patient is stable for discharge and will follow up with Dr. Preaza in the office within 1-2 weeks. Time spent discussing smoking cessation with patient: more than 10 minutes - Time Spent with Patient Total time spent providing and/or coordinating discharge services: - Discharge Medications Prescriptions: Ondansetron ODT [Zofran ODT] 4 mg SL Q6HR PRN 7 Days #15 tab.rapdis PRN Reason: Nausea RX: Ibuprofen [Motrin] 800 mg PO Q8HR 14 Days #42 tablet Ciprofloxacin [Cipro] 500 mg PO BID 7 Days #14 tablet Docusate [Colace] 100 mg PO BID 15 Days #30 capsule RX: metroNIDAZOLE [Metronidazole] 500 mg PO BID 7 Days #14 tablet RX: Oxycodone HCl/Acetaminophen [Endocet 5-325 Tablet] 1 each PO Q6H PRN 7 Days #28 tablet PRN Reason: Pain Home Medications: RX: Albuterol Sulfate [Proair Hfa] 2 puff IH Q4-6H PRN 02/03/18 [History] RX: Aspirin [Adult Aspirin] 81 mg PO DAILY 02/03/18 [History] RX: Benazepril/Hydrochlorothiazide [Ziac 5-6.25 mg Tab] 1 tab PO DAILY 02/03/18 [History] RX: Gabapentin [Neurontin] 600 mg PO TID 02/03/18 [History] RX: Levothyroxine Sodium [Synthroid] 137 mcg PO DAILY 02/03/18 [History] RX: Omeprazole [PriLOSEC] 20 mg PO DAILY 02/03/18 [History] RX: Oxycodone HCl/Acetaminophen [Percocet 5-325 mg Tablet] 1 tab PO TID PRN 02/03/18 [History] RX: Pravastatin Sodium [Pravachol] 40 mg PO QPM 02/03/18 [History] Ciprofloxacin [Cipro] 500 mg PO BID 7 Days #14 tablet 02/05/18 [Rx] Docusate [Colace] 100 mg PO BID 15 Days #30 capsule 02/05/18 [Rx] Ondansetron ODT [Zofran ODT] 4 mg SL Q6HR PRN 7 Days #15 tab.rapdis 02/05/18 [Rx] RX: Ibuprofen [Motrin] 800 mg PO Q8HR 14 Days #42 tablet 02/05/18 [Rx] RX: Oxycodone HCl/Acetaminophen [Endocet 5-325 Tablet] 1 each PO Q6H PRN 7 Days #28 tablet 02/05/18 [Rx] RX: metroNIDAZOLE [Metronidazole] 500 mg PO BID 7 Days #14 tablet 02/05/18 [Rx] Allergies/Adverse Reactions: Allergy/AdvReac Type Severity Reaction Status Date / Time No Known Allergies Allergy Verified 06/26/16 15:13 Date of admission: 02/04/18 15:18 Primary care physician: Kavya Connell CNP Consults: 02/03/18 10:35 Consult to Respiratory Therapy [CONS] Stat Reason for Consult: start scheduled duonebs now given his smoking, emphysema history, and current wheezing. Time Notified: 10:36 Call Completed: No Labs on day of discharge: Labs from last 24 hours 02/05/18 02/05/18 02/04/18 03:56 03:56 12:02 WBC 9.3 RBC 2.92 L Hgb 8.6 L D Hct 26.5 L MCV 90.8 MCH 29.5 MCHC 32.5 RDW 13.6 Plt Count 413 H MPV 9.7 Immature Gran % 0.3 Seg Neutrophils % 70.9 Lymphocytes % 18.7 Monocytes % 7.8 Eosinophils % 2.0 Basophils % 0.3 Neutrophils # 6.6 Lymphocytes # 1.7 Monocytes # 0.7 Eosinophils # 0.2 Basophils # 0.0 Sodium 138 Potassium 3.3 L Chloride 103 Carbon Dioxide 25 BUN 13 Creatinine 0.72 Est GFR ( Amer) > 60 Est GFR (Non-Af Amer) > 60 BUN/Creatinine Ratio 18 Glucose 152 H POC Glucose 155 H Calculated Osmolality 289 Calcium 8.5 L - Impressions ITS Impressions Chest X-Ray 02/03/18 10:34 IMPRESSION: Linear opacities in lung bases, likely atelectasis. D/ / Roxy Edwards MD / Roxy Edwards MD Interpreting Provider: Roxy Edwards MD - Patient Status Disposition: Home, Self-Care Condition: Good Functional capacity at discharge: independent ambulation Overall status at discharge: patient is progressing back to baseline - Discharge Instructions Instructions: Open Cholecystectomy (DC) Follow Up With: Ming Peraza MD [Partnered Physician] - 02/24/18 10:10 am Kavya Connell CNP [Primary Care Provider] - Additional Instructions: General Surgical Discharge Instructions 1. No pushing, pulling, or lifting greater than 15 lbs for 2-4 weeks (depending upon procedure). 2. You may shower beginning today, but no tub baths, soaking, or swimming for 2 weeks. 3. You may resume driving when you are off narcotics and are safe to react in a car. 4. Take ibuprofen every 8 hours for discomfort. If this does not relieve discomfort, you may take the as needed Percocet. Take narcotics as directed. Do not take more narcotics then directed and do not share your narcotics with any other person. Do not drink alcohol while on narcotics. 5. Take stool softeners (Colace) or a water based laxative (Miralax) while taking narcotics. You may hold for loose stools. 6. Report any fevers greater than 100.5F, increase abdominal discomfort, drainage that looks like pus, increased redness or pain at the surgical site, or any vomiting. 7. Report any pain in the calves, shortness of breath, or rapid heartbeat. 8. Follow-up in the office as directed. 9. If you were prescribed antibiotics, do not stop them without talking to your provider 10. Do not drink alcohol while taking Flagyl. - Diet and Activity Activity: increase activity as tolerated Diet: low fat, low cholesterol <Ming Peraza - Last Filed: 02/05/18 21:02> Date of Encounter: 02/05/18 - Discharge Diagnosis (1) Cholelithiasis and acute cholecystitis without obstruction Status: Acute (2) COPD (chronic obstructive pulmonary disease) with emphysema Status: Chronic Qualifiers: Emphysema type: unspecified Qualified Code(s): J43.9 - Emphysema, unspecified (3) HTN, goal below 130/80 Status: Acute (4) Smoking history Status: Acute (5) Chronic pain Status: Acute Qualifiers: Chronic pain type: other chronic pain Qualified Code(s): G89.29 - Other chronic pain General Surgery Exam Initial Vital Signs Temp Pulse Resp BP 99.0 F 84 14 128/73 02/03/18 06:50 02/03/18 06:50 02/03/18 06:50 02/03/18 06:50 - Hospital Course Hospital course: Mr. Umaña is a 57 year old male - Time Spent with Patient Total time spent providing and/or coordinating discharge services: Date of admission: 02/04/18 15:18 Primary care physician: Kavya Connell CNP Consults: 02/03/18 10:35 Consult to Respiratory Therapy [CONS] Stat Reason for Consult: start scheduled duonebs now given his smoking, emphysema history, and current wheezing. Time Notified: 10:36 Call Completed: No Labs on day of discharge: Labs from last 24 hours 02/05/18 02/05/18 03:56 03:56 WBC 9.3 RBC 2.92 L Hgb 8.6 L D Hct 26.5 L MCV 90.8 MCH 29.5 MCHC 32.5 RDW 13.6 Plt Count 413 H MPV 9.7 Immature Gran % 0.3 Seg Neutrophils % 70.9 Lymphocytes % 18.7 Monocytes % 7.8 Eosinophils % 2.0 Basophils % 0.3 Neutrophils # 6.6 Lymphocytes # 1.7 Monocytes # 0.7 Eosinophils # 0.2 Basophils # 0.0 Sodium 138 Potassium 3.3 L Chloride 103 Carbon Dioxide 25 BUN 13 Creatinine 0.72 Est GFR ( Amer) > 60 Est GFR (Non-Af Amer) > 60 BUN/Creatinine Ratio 18 Glucose 152 H Calculated Osmolality 289 Calcium 8.5 L - Impressions ITS Impressions Chest X-Ray 02/03/18 10:34 IMPRESSION: Linear opacities in lung bases, likely atelectasis. D/ / Roxy Edwards MD / Roxy Edwards MD Interpreting Provider: Roxy Edwards MD - Attending Attestation The patient is seen and evaluated on morning rounds with the resident and the clinical nurse practitioner. He is doing quite well. There is low volume serosanguineous drainage in the Adilson-Pérez drain. This can be removed. His abdomen is soft and nontender. He is tolerating diet. We will transition to oral antibiotics and discharge him to home. I will see him back return clinic evaluation in the office. Ming Peraza MD FACS
--- NOTE | 2018-02-05 10:48 | Electrocardiograph Report ---
[address] [address] Test Date: 2018-02-03 Pat Name: Aranza Umaña Department: 115 Room: 3A16 Gender: M Head Bookkeeper: : 1960 Requested By: Karishma Pryor Order Number: [id number] Reading MD: Derek Alvarado Measurements Intervals [place] Rate: 76 P: 86 ND: 180 QRS: 26 QRSD: 89 T: 11 QT: 371 QTc: 401 Interpretive Statements SINUS RHYTHM MODERATE ST DEPRESSION Electronically Signed On 02-05-2018 10:46:50 EST by Derek Alvarado
[2018-02-05 14:19] VITALS: BP 147/84
== END 2018-02-05 15:40 | disposition home or self-care (01) | DRG 416 ==
LOC: 3ANU
PROVIDERS: ADMIT Surgery; ATTEND Surgery